=== PATIENT | male | born 1955 | race Caucasian/White ===

== ENCOUNTER 2019-02-16 13:38 | Emergency (ER) | payer BC ==
[2019-02-16] MEDS ORDERED: Sodium Chloride 0.9% 10 ML Syringe FLUSH PRN (13:52)
[2019-02-16] MEDS ORDERED: Ertapenem 1 GM in Sodium Chloride 0.9% 100 ML IV ONE (13:52)
[2019-02-16] MEDS ORDERED: Diphtheria,Pertussis(Acell),Tetanus Vaccine 0.5 ML SDV IM ONE (13:52)
[2019-02-16] MEDS ORDERED: Sodium Chloride 0.9% 1,000 ML IV ONE (13:53)
[2019-02-16] MEDS ORDERED: HYDROmorphone 0.5 MG/0.5 ML Syringe IVPUSH ONE ×2 (13:53→14:36)
--- NOTE | 2019-02-16 14:09 | EDM.PDOC ---
ED HPI GENERAL MEDICAL PROBLEM - General Chief Complaint: Laceration Stated Complaint: CUT LEFT HAND Time Seen by Provider: 02/16/19 13:55 Source of Information: Reports: Patient, Family History Limitations: Reports: No Limitations - History of Present Illness INITIAL COMMENTS - FREE TEXT/NARRATIVE: Moises is a 63 year old male, presents to the ED today with and family friend after he lacerated his left hand with a patternmaker pressure cast. Patient is right handed, sounds like the patternmaker pressure cast got hung up on a chair and left hand got in the way just below the nozzle. Patient denies any other injuries. He is unable to lift his 3rd and 4th fingers. Unsure of last DT. Onset: Today, Sudden Duration: Hour(s): (1) Left Hand Pain Score (Numeric/FACES): 5 - Related Data Allergies Allergy/AdvReac Type Severity Reaction Status Date / Time Penicillins Allergy Cannot Verified 02/16/19 13:57 Remember Home Meds: Home Meds Budesonide/Formoterol [Symbicort 160-4.5 MCG] 1 puff INH DAILY 02/16/19 [History ] Venlafaxine HCl [Venlafaxine ER] 1 tab PO DAILY 02/16/19 [History] traZODone HCl [Trazodone HCl] 1 tab PO DAILY 02/16/19 [History] ED ROS GENERAL - Review of Systems Review Of Systems: ROS reveals no pertinent complaints other than HPI. ED EXAM, SKIN/RASH Exam: See Below Exam Limited By: No Limitations General Appearance: Alert, WD/WN, Anxious Nose: Normal Inspection Throat/Mouth: Normal Inspection Head: Atraumatic Neck: Normal Inspection, Supple, Non-Tender Respiratory/Chest: No Respiratory Distress Cardiovascular: Regular Rate, Rhythm Peripheral Pulses: 2+: Radial (L), Radial (R) Back Exam: Full Range of Motion Neurological: Alert, Oriented, Sensory/Motor Deficit (unable to lift third and fourth digit on left hand, consistent with extensor tendon laceration) Psychiatric: Anxious Skin: Warm, Wound/Incision (5 cm gaping laceration to left hand, dorsal aspect, medial lateral) Lymphatic: No Adenopathy Course - Vital Signs Last Recorded V/S: Last Vital Signs Temp 36.6 C 02/16/19 13:53 Pulse 89 02/16/19 13:53 Resp 16 02/16/19 13:53 BP 172/94 H 02/16/19 13:53 Pulse Ox 99 02/16/19 13:53 Moises is a 63 year old male, presents to the ED after sustaining significant laceration injury to left hand, please refer to HPI and focused exam. Exam concerning for at least one but most likely two extensor tendons of left hand with inability to move 3rd digit at all and only very minimal flexion of 4th. Able to move 1st, 2nd, 5th with intact strength. DT updated. PIV inserted. Patient given IV fluids, Invanz and Dilaudid for pain. He has not eating today and was given strict instruction to remain nothing by mouth. Patient lives [address] from [facility], I contacted their ED MD who was more than happy to accept patient and will contact hand/plastics on his arrival. Family will drive him. Wound wrapped with moist saline gauze and gentle pressure dressing. Patient discharged in stable condition. - Orders/Labs/Meds Orders: Active Orders 24 hr Category Date Time Status Peripheral IV Care [RC] . DIRECTED Care 02/16/19 13:52 Active Vaccines to be Administered [RC] PER UNIT ROUTINE Care 02/16/19 13:52 Active Sodium Chloride 0.9% [Normal Saline] 1,000 ml Med 02/16/19 13:53 Active IV .BOLUS Sodium Chloride 0.9% [Saline Flush] Med 02/16/19 13:52 Active 10 ml FLUSH ASDIRECTED PRN Peripheral IV Insertion Adult [OM.PC] Routine Oth 02/16/19 13:52 Ordered Medication Orders Sodium Chloride (Normal Saline) 1,000 mls @ 999 mls/hr IV .BOLUS ONE Stop: 02/16/19 14:53 Last Admin: 02/16/19 14:00 Dose: 999 mls/hr Sodium Chloride (Saline Flush) 10 ml FLUSH ASDIRECTED PRN PRN Reason: Keep Vein Open Last Admin: 02/16/19 14:00 Dose: 10 ml Meds: Medications Generic Name Dose Route Start Last Admin Trade Name Freq PRN Reason Stop Dose Admin Sodium Chloride 1,000 mls @ 999 mls/hr 02/16/19 13:53 02/16/19 14:00 Normal Saline IV 02/16/19 14:53 999 mls/hr .BOLUS ONE Administration Sodium Chloride 10 ml 02/16/19 13:52 02/16/19 14:00 Saline Flush FLUSH 10 ml ASDIRECTED PRN Administration Keep Vein Open Discontinued Medications Generic Name Dose Route Start Last Admin Trade Name Freq PRN Reason Stop Dose Admin Diphtheria/Tetanus/Acell Pertussis 0.5 ml 02/16/19 13:52 02/16/19 14:00 Adacel IM 02/16/19 13:53 0.5 ml .ONCE ONE Administration Hydromorphone HCl 0.5 mg 02/16/19 13:53 02/16/19 13:59 Dilaudid IVPUSH 02/16/19 13:54 0.5 mg ONETIME ONE Administration Ertapenem 1 gm/ Sodium 100 mls @ 200 mls/hr 02/16/19 13:52 02/16/19 13:59 Chloride IV 02/16/19 14:21 200 mls/hr ONETIME ONE Administration Departure - Departure Time of Disposition: 15:00 Disposition: DC/Tfer to Acute Hospital 02 Condition: Serious Clinical Impression: Hand laceration involving tendon Qualifiers: Encounter type: initial encounter Laterality: left Qualified Code(s): S61.412A - Laceration without foreign body of left hand, initial encounter - Discharge Information Referrals: PCP,None [Primary Care Provider] - Forms: ED Department Discharge - My Orders Last 24 Hours: My Active Orders 02/16/19 13:52 Peripheral IV Care [RC] . DIRECTED Vaccines to be Administered [RC] PER UNIT ROUTINE Sodium Chloride 0.9% [Saline Flush] 10 ml FLUSH ASDIRECTED PRN Peripheral IV Insertion Adult [OM.PC] Routine 02/16/19 13:53 Sodium Chloride 0.9% [Normal Saline] 1,000 ml IV .BOLUS - Assessment/Plan Last 24 Hours: My Active Orders 02/16/19 13:52 Peripheral IV Care [RC] . DIRECTED Vaccines to be Administered [RC] PER UNIT ROUTINE Sodium Chloride 0.9% [Saline Flush] 10 ml FLUSH ASDIRECTED PRN Peripheral IV Insertion Adult [OM.PC] Routine 02/16/19 13:53 Sodium Chloride 0.9% [Normal Saline] 1,000 ml IV .BOLUS
== END 2019-02-16 15:07 ==
LOC: JP.ED 13:38
DX: S66.323A Laceration of extensor muscle, fascia and tendon of left middle finger at wrist and hand level, initial encounter (principal); W26.8XXA Contact with other sharp object(s), not elsewhere classified, initial encounter; Z23 Encounter for immunization
CPT/HCPCS: 90471; 90715; 96365; 96375; 96376; 99284; J1170; J1335; J7030